=== PATIENT | female | born 1980 | race Caucasian/White ===

== ENCOUNTER 2017-04-15 06:08 | Emergency (ER) | payer MEDICAID, OTHER ==
[2017-04-15] MEDS ORDERED: cefTRIAXone\\ROCEPHIN 250 MG VIAL ONE (07:14)
[2017-04-15] MEDS ORDERED: Lidocaine 1% PF 5 ML VIAL ONE (07:14)
[2017-04-15] MEDS ORDERED: predniSONE 20 MG TAB ONE (07:14)
[2017-04-15] MEDS ORDERED: Azithromycin 250 MG TAB ONE (07:14)
== END 2017-04-15 08:20 | disposition home or self-care (01) ==
LOC: ERS 06:08
DX: Z20.2 Contact with and (suspected) exposure to infections with a predominantly sexual mode of transmission (principal); J45.909 Unspecified asthma, uncomplicated; F32.9 Major depressive disorder, single episode, unspecified; F17.210 Nicotine dependence, cigarettes, uncomplicated
CPT/HCPCS: 87480; 87491; 87510; 87591; 87660; 96372; J0696; J2001; J7506

== ENCOUNTER 2017-10-09 12:38 | Emergency (ER) | payer MEDICAID, OTHER ==
[2017-10-09] MEDS ORDERED: cefTRIAXone\\ROCEPHIN 250 MG VIAL ONE (14:17)
[2017-10-09] MEDS ORDERED: Lidocaine 1% PF 5 ML VIAL ONE (14:18)
[2017-10-09] MEDS ORDERED: Azithromycin 250 MG TAB ONE (14:18)
[2017-10-11 00:52] LABS: Chlamydia by PCR Not Detected (NotDetected); GC by PCR Not Detected (NotDetected)
== END 2017-10-09 14:40 | disposition home or self-care (01) ==
LOC: ERS 12:38
DX: Z20.2 Contact with and (suspected) exposure to infections with a predominantly sexual mode of transmission (principal); F32.9 Major depressive disorder, single episode, unspecified; F17.210 Nicotine dependence, cigarettes, uncomplicated; J45.909 Unspecified asthma, uncomplicated
CPT/HCPCS: 87480; 87491; 87510; 87591; 87660; 96372; J0696; J2001

== ENCOUNTER 2024-05-19 19:02 | Emergency (ER) | payer OTHER | END 2024-05-19 22:48 | disposition home or self-care (01) | LOC: ERS 19:02 | DX: R05.9 Cough, unspecified (principal); F17.210 Nicotine dependence, cigarettes, uncomplicated | CPT/HCPCS: 71045; 87428 ==